=== PATIENT | female | born 1990 | race Caucasian/White ===

== ENCOUNTER → 2016-07-24 | Outpatient (CLI) | payer SELFPAY ==
[2016-08-09 17:04] LABS: HPV 16 Not Detected (NOTDET); HPV 18 Not Detected (NOTDET)
== END ==
LOC: MW.CHOBGYN 10:13
PROVIDERS: ATTEND Obstetrics & Gynecology
DX: Z32.00 Encounter for pregnancy test, result unknown (principal)
CPT/HCPCS: 81025; 87624; G0145

== ENCOUNTER 2021-08-07 07:54 | Day surgery (SDC) | payer MEDICAID ==
[~2021-08-07 07:54] MED LIST: Sodium Chloride 0.9% 10 ML Syringe FLUSH PRN; Sodium Chloride 0.9% 2.5 ML Syringe FLUSH PRN; Sodium Chloride 0.9% 20 ML SDV IV PRN
[2021-08-07] MEDS ORDERED: Metoclopramide 10 MG/2 ML SDV IVPUSH PRN (08:06)
[2021-08-07] MEDS ORDERED: Morphine 2 MG/ML SYRINGE IVPUSH PRN (08:06)
[2021-08-07] MEDS ORDERED: HYDROmorphone 1 MG/ML Syringe IVPUSH PRN (08:06)
[2021-08-07] MEDS ORDERED: Naloxone 0.4 MG/ML SDV IVPUSH PRN (08:06)
[2021-08-07] MEDS ORDERED: Albuterol 0.083% 2.5 MG/3 ML Neb Soln NEB PRN (08:06)
[2021-08-07] MEDS ORDERED: fentaNYL 100 MCG/2 ML SDV IVPUSH PRN (08:06)
[2021-08-07] MEDS ORDERED: Ondansetron 4 MG/2 ML SDV IVPUSH PRN (08:06)
[2021-08-07] MEDS ORDERED: fentaNYL 100 MCG/2 ML SDV ONE (08:43)
[2021-08-07] MEDS ORDERED: Ondansetron 4 MG/2 ML SDV ONE (08:43)
[2021-08-07] MEDS ORDERED: Midazolam 1 MG/ML 2 ML SDV ONE (08:43)
[2021-08-07] MEDS ORDERED: Propofol 200 MG/20 ML SDV ONE (08:43)
[2021-08-07 09:10] LABS: BLOOD UREA NITROGEN,BUN 15 mg/dL (7.0-18.0); CARBON DIOXIDE,CO2 24.4 mmol/L (21.0-32.0); CHLORIDE,CL 105 mmol/L (98-107); ESTIMATED GFR > 60.0 ml/min; GLUCOSE RANDOM 95 mg/dL (74-106); POTASSIUM,K 4.2 mmol/L (3.5-5.1); SODIUM,NA 139 mmol/L (136-145)
[2021-08-07] MEDS ORDERED: Ketorolac 30 MG/ML SDV ONE (09:50)
[2021-08-07] MEDS ORDERED: ePHEDrine 50 MG/ML SDV ONE (10:11)
[2021-08-07] MEDS ORDERED: Acetaminophen/HYDROcodone 325-5 MG Tab PO PRN (10:41)
== END 2021-08-07 12:11 | disposition home or self-care (01) ==
LOC: MW.SDS 07:54
PROVIDERS: ATTEND Obstetrics & Gynecology
DX: N87.1 Moderate cervical dysplasia (principal); N72 Inflammatory disease of cervix uteri; F17.210 Nicotine dependence, cigarettes, uncomplicated; Z79.899 Other long term (current) drug therapy
CPT/HCPCS: 36415; 57460; 80053; 81025; 85027; J0131; J2250; J2370; J2405; J2704; J3010; 00940; J1885

== ENCOUNTER 2023-10-30 13:45 | Emergency (ER) | payer SELFPAY ==
[2023-10-30] MEDS: Acetaminophen 500 MG Tab PO STA (14:30)
[2023-10-30 14:35] LABS: BASOPHILS ABSOLUTE AUTO 0.01 K/uL (0.00-0.20); BASOPHILS PERCENT AUTO 0.3 % (0.0-1.0); EOSINOPHILS ABSOLUTE AUTO 0.04 K/uL (0.00-0.45); EOSINOPHILS PERCENT AUTO 1.3 % (0.0-6.0); HEMATOCRIT 38.8 % (37.0-47.0); HEMOGLOBIN 13.9 g/dL (12.0-16.0); IMMATURE GRAN ABSOLUTE AUTO 0.01 K/uL (0.00-0.05); IMMATURE GRAN PERCENT AUTO 0.3 % (0.0-0.4); LYMPHOCYTES PERCENT AUTO 31.7 % (24.0-44.0); MEAN CORPUSCULAR HEMOGLOBIN 32.3 pg (28.0-32.0); MEAN CORPUSCULAR HGB CONC 35.8 g/dL (32.0-36.0); MEAN CORPUSCULAR VOLUME 90.2 fL (83.0-99.0); MEAN PLATELET VOLUME 10.7 fL (9.4-12.3); MONOCYTES ABSOLUTE AUTO 0.46 K/uL (0.00-0.80); MONOCYTES PERCENT AUTO 14.6 % (0.0-8.0); NEUTROPHILS ABSOLUTE AUTO 1.63 K/uL (1.80-7.70); NEUTROPHILS PERCENT AUTO 51.8 % (41.0-71.0); PLATELET COUNT,PLT 163 K/uL (150-400); WHITE BLOOD CELL COUNT,WBC 3.15 K/uL (3.9-11.3)
[2023-10-30 15:01] LABS: A/G RATIO 0.9 (0.9-1.6); ALBUMIN 3.5 g/dL (3.4-5.0); BILIRUBIN TOTAL 0.3 mg/dL (0.2-1.0); CALCIUM 8.8 mg/dL (8.5-10.1); CARBON DIOXIDE,CO2 25.8 mmol/L (21.0-32.0); CREATININE 0.8 mg/dL (0.6-1.0); EST CRCL DRUG DOSING (CG) 74.06 mL/min; POTASSIUM,K 3.8 mmol/L (3.5-5.1); PROTEIN TOTAL,TP 7.5 g/dL (6.4-8.2)
[2023-10-30 15:19] LABS: APPEARANCE,URINE SLT CLOUDY; COLOR,URINE YELLOW; GLUCOSE,URINE NEGATIVE (NEGATIVE); KETONES,URINE TRACE mg/dL (NEGATIVE); LEUKOCYTE ESTERASE,URINE TRACE (NEGATIVE); NITRITE,URINE POSITIVE (NEGATIVE); OCCULT BLOOD,URINE LARGE (NEGATIVE); PROTEIN,URINE 30 mg/dL (NEGATIVE); UROBILINOGEN,URINE 0.2 EU/dL (<2.0)
[2023-10-30 15:23] LABS: LACTIC ACID 2.2 mmol/L (0.4-2.0)
[2023-10-30 15:26] LABS: BACTERIA,URINE 2+ (NEGATIVE); BILIRUBIN,URINE SMALL (NEGATIVE); EPITHELIAL CELLS,URINE MANY (NONE-FEW); MUCUS,URINE MODERATE (NONE-MOD); RBC,URINE 20-30 (0-2/HPF)
[2023-10-30] MEDS: Sodium Chloride 0.9% 1,000 ML IV SCH (15:27)
[2023-10-30] MEDS: Ibuprofen 400 MG Tab PO ONE (15:27)
[2023-10-30 15:48] LABS: CANDIDA DNA PROBE NEGATIVE (NEGATIVE); GARDNERELLA DNA PROBE NEGATIVE (NEGATIVE); TRICHOMONAS DNA PROBE NEGATIVE (NEGATIVE)
[2023-10-30] MEDS: Levofloxacin 500 MG Tab PO ONE (15:59)
[2023-10-30 16:30] LABS: C. TRACHOMATIS BY PCR NOT DETECTED; N. GONORRHOEAE BY PCR NOT DETECTED
[2023-10-30 17:23] LABS: LACTIC ACID 0.9 mmol/L (0.4-2.0)
== END 2023-10-30 18:07 | disposition home or self-care (01) ==
LOC: MW.ED 13:45
DX: N39.0 Urinary tract infection, site not specified (principal); Z79.899 Other long term (current) drug therapy
CPT/HCPCS: 36415; 74176; 80053; 81001; 81025; 83605; 85025; 87040; 87086; 87480; 87491; 87510; 87591; 87660; 96360; 96361; 99285; A9270; J7030; 99283

== ENCOUNTER 2023-10-31 11:40 | Observation (INO) | payer SELFPAY ==
[2023-10-31] MEDS: Ibuprofen 600 MG Tab PO ONE (12:18)
[2023-10-31] MEDS: Sodium Chloride 0.9% 1,000 ML IV STA ×2 (12:21→12:22)
[2023-10-31] MEDS: Sodium Chloride 0.9% 2.5 ML Syringe FLUSH PRN (12:22)
[2023-10-31] MEDS: Sodium Chloride 0.9% 10 ML Syringe FLUSH PRN (12:22)
[2023-10-31 12:39] LABS: BASOPHILS ABSOLUTE AUTO 0.01 K/uL (0.00-0.20); BASOPHILS PERCENT AUTO 0.3 % (0.0-1.0); EOSINOPHILS ABSOLUTE AUTO 0.08 K/uL (0.00-0.45); EOSINOPHILS PERCENT AUTO 2.7 % (0.0-6.0); HEMATOCRIT 37.7 % (37.0-47.0); HEMOGLOBIN 13.2 g/dL (12.0-16.0); IMMATURE GRAN ABSOLUTE AUTO 0.02 K/uL (0.00-0.05); IMMATURE GRAN PERCENT AUTO 0.7 % (0.0-0.4); LYMPHOCYTES ABSOLUTE AUTO 0.88 K/uL (1.00-4.80); LYMPHOCYTES PERCENT AUTO 30.1 % (24.0-44.0); MEAN CORPUSCULAR HEMOGLOBIN 31.7 pg (28.0-32.0); MEAN CORPUSCULAR VOLUME 90.4 fL (83.0-99.0); MEAN PLATELET VOLUME 10.6 fL (9.4-12.3); MONOCYTES ABSOLUTE AUTO 0.35 K/uL (0.00-0.80); NEUTROPHILS ABSOLUTE AUTO 1.58 K/uL (1.80-7.70); NEUTROPHILS PERCENT AUTO 54.2 % (41.0-71.0); PLATELET COUNT,PLT 165 K/uL (150-400); RED BLOOD CELL COUNT 4.17 M/uL (4.10-5.30); WHITE BLOOD CELL COUNT,WBC 2.92 K/uL (3.9-11.3)
[2023-10-31 13:01] LABS: INR 1.02 (0.86-1.11)
[2023-10-31 13:18] LABS: CORONAVIRUS COVID-19 NAA NEGATIVE (NEGATIVE); INFLUENZA A NAA NEGATIVE (NEGATIVE); INFLUENZA B NAA NEGATIVE (NEGATIVE); RESPIRATORY SYNCYTIAL VIR NAA NEGATIVE (NEGATIVE)
[2023-10-31 13:31] LABS: LACTIC ACID 2.5 mmol/L (0.4-2.0)
[2023-10-31 14:00] LABS: AMPHETAMINES SCREEN, URINE PRESUMPTIVE POSITIVE (CUTOFF=500); BARBITURATE SCREEN,URINE NEGATIVE (CUTOFF=200); BENZODIAZEPINES SCREEN,URINE NEGATIVE (CUTOFF=150); BUPRENORPHINE SCREEN,URINE NEGATIVE (CUTOFF=10); METHADONE SCREEN, URINE NEGATIVE (CUTOFF=200); METHAMPHETAMINES SCREEN, URINE NEGATIVE (CUTOFF=500); OXYCODONE SCREEN,URINE NEGATIVE (CUT0FF=100); PCP SCREEN,URINE NEGATIVE (CUTOFF=25); THC SCREEN,URINE 20 NG/ML PRESUMPTIVE POSITIVE (CUTOFF=50)
[2023-10-31] MEDS: Sodium Chloride 0.9% 500 ML IV SCH (14:14)
[2023-10-31 14:46] LABS: APPEARANCE,URINE CLEAR; BILIRUBIN,URINE NEGATIVE (NEGATIVE); COLOR,URINE YELLOW; GLUCOSE,URINE NEGATIVE (NEGATIVE); KETONES,URINE NEGATIVE (NEGATIVE); LEUKOCYTE ESTERASE,URINE NEGATIVE (NEGATIVE); NITRITE,URINE NEGATIVE (NEGATIVE); OCCULT BLOOD,URINE MODERATE (NEGATIVE); PROTEIN,URINE 30 mg/dL (NEGATIVE); UROBILINOGEN,URINE 0.2 EU/dL (<2.0)
[2023-10-31 14:55] LABS: A/G RATIO 0.9 (0.9-1.6); ALANINE AMINOTRANSFERASE,ALT 29 IU/L (14-63); ALBUMIN 3.5 g/dL (3.4-5.0); ALKALINE PHOSPHATASE 63 U/L (46-116); ASPARTATE AMNIOTRANSFERASE,AST 26 IU/L (15-37); BILIRUBIN TOTAL 0.2 mg/dL (0.2-1.0); BLOOD UREA NITROGEN,BUN 10 mg/dL (7.0-18.0); CALCIUM 8.9 mg/dL (8.5-10.1); CARBON DIOXIDE,CO2 25.4 mmol/L (21.0-32.0); CHLORIDE,CL 102 mmol/L (98-107); CREATININE 0.8 mg/dL (0.6-1.0); EST CRCL DRUG DOSING (CG) 74.06 mL/min; ESTIMATED GFR 98 mL/min (>60); GLUCOSE RANDOM 125 mg/dL (74-106); LIPASE 64 U/L (16-77); POTASSIUM,K 4.4 mmol/L (3.5-5.1); PROTEIN TOTAL,TP 7.5 g/dL (6.4-8.2); SODIUM,NA 138 mmol/L (136-145)
[2023-10-31 14:59] LABS: BACTERIA,URINE RARE (NEGATIVE); EPITHELIAL CELLS,URINE FEW (NONE-FEW); RBC,URINE 18-26 (0-2/HPF)
[2023-10-31] MEDS ORDERED: Acetaminophen 1,000 MG in Premix Bag 1 BAG IV ONE (16:19)
[2023-10-31] MEDS: Acetaminophen 500 MG Tab PO ONE (16:33)
[2023-10-31] MEDS ORDERED: Polyethylene Glycol 3350 Powder 17 GM Packet PO PRN (16:51)
[2023-10-31] MEDS ORDERED: Melatonin 3 MG Tab PO PRN (16:51)
[2023-10-31] MEDS ORDERED: Ondansetron 4 MG/2 ML SDV IVPUSH PRN (16:51)
[2023-10-31] MEDS ORDERED: Acetaminophen 650 MG Supp RECTAL PRN (16:51)
[2023-10-31] MEDS ORDERED: Sodium Chloride 0.9% 1,000 ML IV SCH (17:00)
[2023-10-31 17:10] LABS: HEMOGLOBIN A1C 5.5 %
[2023-10-31 17:17] LABS: TSH ULTRASENSITIVE 0.91 uIU/mL (0.36-3.74)
[2023-10-31] MEDS: Sodium Chloride 0.9% 1,000 ML IV SCH (18:15)
[2023-10-31] MEDS: cefTRIAXone 2 GM in Sodium Chloride 0.9% 100 ML IV SCH (18:16)
[2023-10-31] MEDS: hydrOXYzine HCl 25 MG Tab PO SCH (18:19)
[2023-10-31] MEDS: valACYclovir 500 MG Tab PO SCH (18:19)
[2023-10-31] MEDS ORDERED: hydrOXYzine HCl 25 MG Tab PO PRN (18:29)
[2023-10-31] MEDS: metroNIDAZOLE 250 MG Tab PO SCH (20:24)
[2023-10-31] MEDS: Acetaminophen 325 MG Tab PO PRN (20:57)
[2023-11-01 06:05] LABS: HEMATOCRIT 31.9 % (37.0-47.0); HEMOGLOBIN 11.5 g/dL (12.0-16.0); MEAN CORPUSCULAR HEMOGLOBIN 32.2 pg (28.0-32.0); MEAN CORPUSCULAR HGB CONC 36.1 g/dL (32.0-36.0); MEAN CORPUSCULAR VOLUME 89.4 fL (83.0-99.0); PLATELET COUNT,PLT 144 K/uL (150-400); RED BLOOD CELL COUNT 3.57 M/uL (4.10-5.30); WHITE BLOOD CELL COUNT,WBC 3.01 K/uL (3.9-11.3)
[2023-11-01] MEDS: Ibuprofen 400 MG Tab PO PRN (06:29)
[2023-11-01 06:30] LABS: A/G RATIO 0.8 (0.9-1.6); ALBUMIN 2.7 g/dL (3.4-5.0); BILIRUBIN TOTAL 0.1 mg/dL (0.2-1.0); CALCIUM 7.7 mg/dL (8.5-10.1); CARBON DIOXIDE,CO2 24.9 mmol/L (21.0-32.0); CREATININE 0.6 mg/dL (0.6-1.0); EST CRCL DRUG DOSING (CG) 98.75 mL/min; MAGNESIUM 1.8 mg/dL (1.8-2.4); POTASSIUM,K 3.9 mmol/L (3.5-5.1)
[2023-11-01 06:42] LABS: EOSINOPHILS ABSOLUTE MAN 0.12 K/uL (0.00-0.45); EOSINOPHILS PERCENT MAN 4 % (0-6); LYMPHOCYTES ABSOLUTE MAN 1.51 K/uL (1.00-4.80); LYMPHOCYTES PERCENT MAN 50 % (24-44); MONOCYTES ABSOLUTE MAN 0.33 K/uL (0.00-0.80); MONOCYTES PERCENT MAN 11 % (0-8); SEG NEUTROPHILS ABSOLUTE MAN 1.05 K/uL (1.80-7.70); SEG NEUTROPHILS PERCENT MAN 35 % (41-71)
[2023-11-01] MEDS ORDERED: Magnesium Sulfate/Water 2 GM in Premix Bag 1 BAG IV ONE (10:07)
[2023-11-01] MEDS: Magnesium Oxide 400 MG Tab PO ONE (10:50)
== END 2023-11-01 11:53 | disposition home or self-care (01) ==
LOC: MW.ED 11:40 → MW.MS 15:33
PROVIDERS: ADMIT Family Medicine; ATTEND Family Medicine
DX: E87.20 Acidosis, unspecified (principal); N39.0 Urinary tract infection, site not specified; T83.511A Infection and inflammatory reaction due to indwelling urethral catheter, initial encounter; R00.0 Tachycardia, unspecified; D72.819 Decreased white blood cell count, unspecified; R31.9 Hematuria, unspecified; Z79.899 Other long term (current) drug therapy; Z20.822 Contact with and (suspected) exposure to COVID-19
CPT/HCPCS: 0241U; 36415; 71045; 80053; 80305; 81001; 83036; 83605; 83690; 83735; 84443; 84484; 84703; 85025; 85610; 87040; 87086; 87389; 93005; 96361; 96365; 99285; A9270; G0378; J0696; J3490; J7030; J7040; 93010; 99283